=== PATIENT | female | born 1985 | race Caucasian/White ===

== ENCOUNTER → 2018-10-17 | Outpatient (CLI) | payer OTHER | END | disposition home or self-care (01) | LOC: SONOGRAMA 14:51 → EDBD 14:51 | DX: D25.9 Leiomyoma of uterus, unspecified (principal) ==

== ENCOUNTER 2020-08-09 09:03 | Outpatient (CLI) | payer OTHER | END 2020-08-09 09:18 | disposition home or self-care (01) | LOC: RX STUDY 09:03 | PROVIDERS: ATTEND Specialist | DX: R10.2 Pelvic and perineal pain (principal); D25.9 Leiomyoma of uterus, unspecified ==

== ENCOUNTER 2020-11-28 09:09 | Outpatient (CLI) | payer OTHER | END 2020-11-28 13:37 | disposition home or self-care (01) | LOC: SONOGRAMA 09:09 | DX: D25.1 Intramural leiomyoma of uterus (principal) ==

== ENCOUNTER 2021-01-24 06:00 | Day surgery (SDC) | payer OTHER ==
[~2021-01-24 06:00] MED LIST: CABERGOLINE0.5 MG PO
== END 2021-01-24 13:00 | disposition home or self-care (01) ==
LOC: CIR.AMB 06:00
PROVIDERS: ATTEND Specialist
DX: N85.8 Other specified noninflammatory disorders of uterus (principal); Z20.822 Contact with and (suspected) exposure to COVID-19

== ENCOUNTER 2021-10-03 06:46 | Day surgery (SDC) | payer OTHER | END 2021-10-03 14:50 | disposition home or self-care (01) | LOC: CIR.AMB 06:46 | PROVIDERS: ATTEND Specialist | DX: O02.1 Missed abortion (principal); Z91.011 Allergy to milk products ==

== ENCOUNTER 2022-04-16 08:34 | Outpatient (CLI) | payer OTHER | END 2022-04-16 08:54 | disposition home or self-care (01) | LOC: MAMO-SONO 08:34 | PROVIDERS: ATTEND Specialist | DX: N63.10 Unspecified lump in the right breast, unspecified quadrant (principal); D25.0 Submucous leiomyoma of uterus; N92.4 Excessive bleeding in the premenopausal period ==

== ENCOUNTER 2023-07-22 09:44 | Outpatient (CLI) | payer OTHER | END 2023-07-22 09:54 | disposition home or self-care (01) | LOC: MAMO-SONO 09:44 | PROVIDERS: ATTEND Obstetrics & Gynecology | DX: N63.12 Unspecified lump in the right breast, upper inner quadrant (principal); N63.11 Unspecified lump in the right breast, upper outer quadrant ==

== ENCOUNTER 2025-01-24 09:35 | Outpatient (CLI) | payer OTHER | END 2025-01-24 09:39 | disposition home or self-care (01) | LOC: MAMO-SONO 09:35 | PROVIDERS: ATTEND Specialist | DX: N63.0 Unspecified lump in unspecified breast (principal); Z12.31 Encounter for screening mammogram for malignant neoplasm of breast; D25.9 Leiomyoma of uterus, unspecified ==